=== PATIENT | male | born 1985 | race Caucasian/White ===

== ENCOUNTER 2019-11-15 22:53 | Observation (INO) | payer SELFPAY ==
--- NOTE | 2019-11-15 23:36 | ER Document Report ---
Entered by QUIANA RICHARDSON SCRIBE 11/15/19 [id number] Acting as scribe for:DESTINY PENDLETON IV, MD ED Syncope and Near Syncope - General Chief Complaint: Syncope Stated Complaint: SYNCOPAL EPISODE WITH HYPOTENSION Time Seen by Provider: 11/15/19 23:04 Mode of Arrival: Medic Information source: Patient Notes: This 34 year old male patient brought in by EMS from sister's house presents to the ED today with complaints of a syncopal episode that occurred just prior to arrival. Patient states that he was at the beach all day and drank x3 beers. When he got home, he had x2 mixed drinks and then ate some pizza. He states that he went outside to smoke a cigarette, but does not remember what happened after he went outside. Nursing reports positive witnessed LOC from a standing position onto his left side. Upon EMS arrival, patient was awake, but disoriented and had an initial BP in the 60s systolic and BGL of 155. They administered 1 L fluid which brought the patient's BP up. Patient reports left shoulder pain, but denies head or neck pain. Denies any prior cardiac history. - Related Data Allergies/Adverse Reactions: No Known Allergies Allergy (Unverified 11/15/19 23:04) Past Medical History - General Information source: Patient - Social History Smoking Status: Current Every Day Smoker Smoking Education Provided: No Frequency of alcohol use: Social Family History: Reviewed & Not Pertinent Patient has suicidal ideation: No Patient has homicidal ideation: No Review of Systems - Review of Systems Constitutional: No symptoms reported EENT: No symptoms reported Cardiovascular: See HPI, Syncope Respiratory: No symptoms reported Gastrointestinal: See HPI, Poor fluid intake Genitourinary: No symptoms reported Male Genitourinary: No symptoms reported Musculoskeletal: See HPI, Joint pain. denies: Neck pain Skin: No symptoms reported Hematologic/Lymphatic: No symptoms reported Neurological/Psychological: See HPI, Lost consciousness. denies: Headaches -: Yes All other systems reviewed and negative Physical Exam - Vital signs Vitals: Resp Pulse Ox 16 87 L 11/15/19 22:59 11/15/19 22:59 - General General appearance: Alert In distress: None - HEENT Head: Normocephalic, Atraumatic Eyes: Normal Conjunctiva: Injected Extraocular movements intact: Yes Pupils: PERRL - Respiratory Respiratory status: No respiratory distress Chest status: Nontender Breath sounds: Normal Chest palpation: Normal - Cardiovascular Rhythm: Regular Heart sounds: Normal auscultation Murmur: No Friction rub: No Gallop: None auscultated - Abdominal Inspection: Normal Distension: No distension Bowel sounds: Normal Tenderness: Nontender - Abdomen soft Organomegaly: No organomegaly - Back Back: Normal, Nontender - Extremities General upper extremity: Normal inspection General lower extremity: Normal inspection - Neurological Neuro grossly intact: Yes - No focal neurological deficits Orientation: AAOx4 [place] Coma Scale Eye Opening: Spontaneous [place] Coma Scale Verbal: Oriented [place] Coma Scale Motor: Obeys Commands [place] Coma Scale Total: 15 - Psychological Associated symptoms: Normal affect, Normal mood - Skin Skin Temperature: Warm Skin Moisture: Dry Skin Color: Normal Course - Re-evaluation Re-evalutation: 11/16/19 04:05 Results of ED MSE discussed with patient and patient's . All questions were answered. Recommendation of admission discussed with patient; he agreed to be admitted. - Vital Signs Vital signs: Temp Pulse Resp BP Pulse Ox 97.6 F 70 15 109/50 L 93 11/15/19 23:06 11/15/19 23:06 11/16/19 02:01 11/16/19 02:01 11/16/19 02:01 - Laboratory Result Diagrams: 11/16/19 00:00 11/16/19 00:00 Laboratory results interpreted by me: 11/16/19 11/16/19 11/16/19 00:00 00:00 00:00 WBC 10.9 H PT 15.5 H Potassium 3.5 L Magnesium 2.4 H Total Protein 6.2 L - EKG Interpretation by Me Additional EKG results interpreted by me: 11/16/19 04:06 EKG obtained on 11/15/2019 at 2305 hrs. was interpreted by this MD. Findings: A. fib with a rate of 69. There are no obvious patterns of ST segment elevation or depression present to suggest acute myocardial ischemia or infarction. Impressi on: Rate controlled A. fib EKG obtained on 11/16/2019 at 00 21 hours was interpreted by this MD. Findings: Atrial fibrillation with a rate of 88. There are no obvious patterns of ST segment elevation or depression present to suggest acute myocardial ischemia or infarction. Impression rate controlled A. fib. - Consults Dr. Catherine Time consulted: 04:05 Reason for consultation: 11/16/19 04:09 new onset a fib Consulted provider: will see as inpatient Discharge - Discharge Clinical Impression: New onset atrial fibrillation, Cocaine abuse, Marijuana abuse Elevated blood alcohol level Qualifiers: Blood alcohol level: 40-59 mg/100 ml Qualified Code(s): Y90.2 - Blood alcohol level of 40-59 mg/100 ml Condition: Stable Disposition: ADMITTED OBSERVATION Admitting Provider: Catherine (Hospitalist) Unit Admitted: Telemetry I personally performed the services described in the documentation, reviewed and edited the documentation which was dictated to the scribe in my presence, and it accurately records my words and actions.
[2019-11-15] MEDS ORDERED: ONDANSETRON HCL INJ/PF 4 MG/2 ML SDV IV ONE (23:41)
--- NOTE | 2019-11-15 23:49 | RADIOLOGY REPORT (SQ) ---
CLINICAL HISTORY: ams, fall COMPARISON: None. TECHNIQUE: CT HEAD WITHOUT IV CONTRAST on 11/15/2019 11:18 PM CDT This exam was performed according to our departmental dose-optimization program, which includes automated exposure control, adjustment of the mA and/or kV according to patient size and/or use of iterative reconstruction technique. FINDINGS: There is no acute hemorrhage, mass effect or midline shift. Preston-white differentiation is preserved. There is no hydrocephalus. There is no significant volume loss for age. The calvarium is intact. Orbits and globes are unremarkable. The paranasal sinuses are clear. Mastoid air cells are clear. IMPRESSION: No acute intracranial findings.
[2019-11-15] MEDS: NORMAL SALINE 1000 ML 1,000 ML IV PRN (23:55)
[2019-11-16 00:18] LABS: ABSOLUTE EOSINOPHILS # (AUTO) 0.1 10^3/uL (0.0-0.6); ABSOLUTE LYMPHOCYTES (AUTO) 3.5 10^3/uL (0.5-4.7); ABSOLUTE NEUT (AUTO) 6.3 10^3/uL (1.7-8.2); BASOPHILS % (AUTO) 0.2 % (0-2); EOSINOPHILS % (AUTO) 1.2 % (0-6); HEMATOCRIT 42.9 % (37.9-51.0); LYMPHOCYTES % (AUTO) 31.9 % (13-45); MEAN CORPUSCULAR HEMOGLOBIN 31.9 pg (27.0-33.4); MEAN CORPUSCULAR VOLUME 91 fl (80-97); MONOCYTES % (AUTO) 8.9 % (3-13); PLATELET COUNT 289 10^3/uL (150-450); RED BLOOD COUNT 4.71 10^6/uL (4.35-5.55); RED CELL DISTRIBUTION WIDTH 13.4 % (11.5-14.0); SEGMENTED NEUTROPHILS % (AUTO) 57.8 % (42-78); TOTAL CELLS COUNTED % (AUTO) 100 %; WHITE BLOOD COUNT 10.9 10^3/uL (4.0-10.5)
[2019-11-16] MEDS: NORMAL SALINE 1000 ML 1,000 ML IV PRN (00:22)
[2019-11-16 00:28] LABS: INTERNATIONAL RATION (INR) 1.21; PROTHROMBIN TIME 15.5 SEC (11.4-15.4)
[2019-11-16 00:43] LABS: ALBUMIN 3.8 g/dL (3.5-5.0); ALKALINE PHOSPHATASE 53 U/L (38-126); ANION GAP 11 (5-19); ASPARTATE AMINO TRANSFERASE 20 U/L (17-59); BILIRUBIN,DIRECT 0.3 mg/dL (0.0-0.4); BILIRUBIN,TOTAL 0.4 mg/dL (0.2-1.3); BLOOD UREA NITROGEN 15 mg/dL (7-20); CALCIUM 8.8 mg/dL (8.4-10.2); CARBON DIOXIDE 24 mmol/L (22-30); CHLORIDE 103 mmol/L (98-107); GLUCOSE 104 mg/dL (75-110); POTASSIUM 3.5 mmol/L (3.6-5.0); TOTAL PROTEIN 6.2 g/dL (6.3-8.2)
[2019-11-16 00:45] LABS: APPEARANCE,URINE CLEAR; BILIRUBIN,URINE NEGATIVE (NEGATIVE); COLOR,URINE YELLOW; GLUCOSE, URINE NEGATIVE (NEGATIVE); KETONES,URINE NEGATIVE (NEGATIVE); LEUKOCYTE ESTERASE,URINE NEGATIVE (NEGATIVE); NITRITE,URINE NEGATIVE (NEGATIVE); PROTEIN,URINE NEGATIVE (NEGATIVE); UROBILINOGEN,URINE NEGATIVE mg/dL (<2.0)
[2019-11-16 01:01] LABS: URINE AMPHETAMINES SCREEN NEGATIVE; URINE BARBITURATES SCREEN NEGATIVE; URINE BENZODIAZEPINES SCREEN NEGATIVE; URINE METHADONE SCREEN NEGATIVE; URINE PHENCYCLIDINE SCREEN NEGATIVE
[2019-11-16 01:04] LABS: URINE COCAINE SCREEN UNCONFIRMED POSITIVE; URINE MARIJUANA (THC) SCREEN UNCONFIRMED POSITIVE
[2019-11-16 01:53] LABS: FREE T3 4.52 pg/mL (2.77-5.27); FREE T4 (FREE THYROXINE) 1.4 ng/dL (0.78-2.19)
[2019-11-16] MEDS ORDERED: POTASSIUM CHLORIDE 10 MEQ TABLET.ER PO ONE (03:21)
[2019-11-16] MEDS ORDERED: POTASSI CL 20 MEQ/50 ML RIDER 20 MEQ/50 ML RTUPB IV ONE (03:21)
[2019-11-16] MEDS ORDERED: PROMETHAZINE HCL INJ 25 MG/1 ML VIAL IV PRN (04:48)
[2019-11-16] MEDS ORDERED: MELATONIN 5 MG TABLET PO PRN (04:48)
[2019-11-16] MEDS ORDERED: GUAIFENESIN SYRP 200 MG/10 ML UDC PO PRN (04:48)
[2019-11-16] MEDS ORDERED: NICOTINE 21 MG/24 HR PATCH.TD24 TD PRN (04:48)
[2019-11-16] MEDS ORDERED: LORAZEPAM INJ 2 MG/1 ML VIAL IV PRN (04:48)
[2019-11-16] MEDS ORDERED: MAG HYDROX/AL HYDROX/SIMETH SUSP 30 ML UDCUP PO PRN (04:49)
[2019-11-16] MEDS ORDERED: MAGNESIUM HYDROXIDE SUSP 30 ML UDCUP PO PRN (04:49)
--- NOTE | 2019-11-16 06:30 | PDOC H&P ---
History of Present Illness Admission Date/PCP: 11/16/19 04:18 Patient complains of: Syncopal episode History of Present Illness: CHEMA SIMON is a 34 year old male who presented via EMS to the emergency room with an acute syncopal episode. He admits having been out in the sun at the beach all day and consuming 3 beers prior to returning home for supper. At suppertime he had 2 mixed drinks and ate pizza. After eating he went outside to smoke a cigarette and lost consciousness falling from a standing position witnessed by several observers, his unconsciousness persisted for more than 20 minutes. He denies any prodrome symptoms prior to his collapse. He denies other associated or accompanying signs and symptoms. He denies prior similar episodes. Upon EMS arrival he was found to be awake but mildly disoriented and was noted to be hypotensive. His blood pressure recovered well with administration of 1 L of IV fluid. In the emergency room he was found to have a left shoulder contusion, atrial fibrillation on his EKG, hypokalemia, a minimal leukocytosis, a drug screen positive for cocaine and marijuana, a blood alcohol level of 49 and an otherwise unremarkable evaluation. Because of his newly diagnosed atrial fibrillation he was admitted observation status for initial anticoagulation and cardiology consultation. Past Medical History Cardiac Medical History: Denies: Atrial Fibrillation, Coronary Artery Disease, DVT, Myocardial Infarction, Hyperlipidema, Hypertension, Pulmonary Embolism Pulmonary Medical History: Denies: Asthma, Chronic Obstructive Pulmonary Disease (COPD) EENT Medical History: Denies: Cataracts, Ears - Hearing aids Neurological Medical History: Denies: Migraine, Multiple Sclerosis, Seizures Endocrine Medical History: Denies: Diabetes Mellitus Type 1, Diabetes Mellitus Type 2, Hyperthyroidism, Hypothyroidism, Obesity Renal/ Medical History: Denies: Chronic Kidney Disease, Nephrolithiasis Malignancy Medical History: Reports: None GI Medical History: Denies: Cirrhosis, Crohn's Disease, Gastroesophageal Reflux Disease, Hepatitis, Peptic Ulcer Disease, Ulcerative Colitis Musculoskeltal Medical History: Denies: Arthritis, Gout Skin Medical History: Denies: Eczema, Psoriasis Psychiatric Medical History: Reports: Tobacco Dependency Denies: Alcohol Dependency, Substance Abuse Traumatic Medical History: Reports: None Hematology: Denies: Anemia, Bleeding Tendencies Infectious Medical History: Reports: None Past Surgical History Past Surgical History: Reports: Appendectomy Social History Information Source: Patient Lives with: Spouse/Significant other Smoking Status: Current Every Day Smoker Electronic Cigarette use?: No Frequency of Alcohol Use: Social Hx Recreational Drug Use: Yes Drugs: Cocaine, Marijuana Hx Prescription Drug Abuse: No - Advance Directive Resuscitation Status: Full Code Surrogate healthcare decision maker:: Samantha Simon Family History Family History: denies: CAD, DM, Hypertension, Malignancy Parental Family History Reviewed: Yes Children Family History Reviewed: No Sibling(s) Family History Reviewed.: Yes Medication/Allergy Allergies/Adverse Reactions: No Known Allergies Allergy (Unverified 11/15/19 23:04) Review of Systems Constitutional: ABSENT: anorexia, fever(s) Eyes: ABSENT: visual disturbances, other - Eye pain Ears: ABSENT: hearing changes, other - Ear pain Nose, Mouth, and Throat: ABSENT: headache(s), sore throat Cardiovascular: ABSENT: chest pain, palpitations Respiratory: ABSENT: cough, dyspnea Gastrointestinal: ABSENT: abdominal pain, constipation, diarrhea, nausea, vomiting Genitourinary: ABSENT: dysuria, hematuria Musculoskeletal: PRESENT: as per HPI, back pain - Mid thoracic region centrally, other - Left shoulder pain. ABSENT: joint swelling Integumentary: ABSENT: pruritus, rash Neurological: PRESENT: as per HPI, confusion, syncope. ABSENT: convulsions, focal weakness, memory loss Psychiatric: ABSENT: anxiety, depression Endocrine: ABSENT: cold intolerance, heat intolerance Hematologic/Lymphatic: ABSENT: easy bleeding, easy bruising Allergic/Immunologic: ABSENT: seasonal rhinorrhea Physical Exam Vital Signs: Temp Pulse Resp BP Pulse Ox 97.6 F 70 15 109/50 L 93 11/15/19 23:06 11/15/19 23:06 11/16/19 02:01 11/16/19 02:01 11/16/19 02:01 Intake & Output 11/14/19 11/15/19 11/16/19 23:59 23:59 23:59 Intake Total 1450 Balance 1450 Weight 68.6 kg General appearance: PRESENT: no acute distress, cooperative, well-developed Head exam: PRESENT: atraumatic, normocephalic Eye exam: PRESENT: conjunctiva pink. ABSENT: conjunctival injection, scleral icterus Ear exam: PRESENT: normal external ear exam. ABSENT: bleeding, drainage Mouth exam: PRESENT: dry mucosa, neck supple Neck exam: ABSENT: thyromegaly, tracheal deviation Respiratory exam: PRESENT: clear to auscultation elvis, symmetrical, unlabored Cardiovascular exam: PRESENT: RRR. ABSENT: clicks, gallop, rubs Pulses: PRESENT: normal radial pulses, normal dorsalis pedis pul Vascular exam: PRESENT: normal capillary refill. ABSENT: pallor GI/Abdominal exam: PRESENT: normal bowel sounds, soft. ABSENT: tenderness Rectal exam: PRESENT: deferred Extremities exam: ABSENT: joint swelling, pedal edema Musculoskeletal exam: ABSENT: deformity, dislocation Neurological exam: PRESENT: alert, oriented to person, oriented to place, oriented to time, oriented to situation, CN II-XII grossly intact. ABSENT: motor sensory deficit Psychiatric exam: PRESENT: appropriate affect, normal mood Skin exam: PRESENT: dry, intact, warm. ABSENT: jaundice, rash, urticaria Results Laboratory Results: 11/16/19 00:00 11/16/19 00:00 11/16/19 11/16/19 11/16/19 00:00 00:00 00:00 WBC 10.9 H RBC 4.71 Hgb 15.0 Hct 42.9 MCV 91 MCH 31.9 MCHC 35.0 RDW 13.4 Plt Count 289 Seg Neutrophils % 57.8 Sodium 137.5 Potassium 3.5 L Chloride 103 Carbon Dioxide 24 Anion Gap 11 BUN 15 Creatinine 0.88 Est GFR ( Amer) > 60 Glucose 104 Calcium 8.8 Magnesium 2.4 H Total Bilirubin 0.4 AST 20 Alkaline Phosphatase 53 Total Protein 6.2 L Albumin 3.8 TSH 1.83 Free T4 Free T3 pg/mL Urine Color Urine Appearance Urine pH Ur Specific [place] Urine Protein Urine Glucose (UA) Urine Ketones Urine Blood Urine Nitrite Ur Leukocyte Esterase Urine WBC (Auto) Urine RBC (Auto) 11/16/19 11/16/19 00:00 00:18 WBC RBC Hgb Hct MCV MCH MCHC RDW Plt Count Seg Neutrophils % Sodium Potassium Chloride Carbon Dioxide Anion Gap BUN Creatinine Est GFR ( Amer) Glucose Calcium Magnesium Total Bilirubin AST Alkaline Phosphatase Total Protein Albumin TSH Free T4 1.40 Free T3 pg/mL 4.52 Urine Color YELLOW Urine Appearance CLEAR Urine pH 5.0 Ur Specific [place] 1.010 Urine Protein NEGATIVE Urine Glucose (UA) NEGATIVE Urine Ketones NEGATIVE Urine Blood NEGATIVE Urine Nitrite NEGATIVE Ur Leukocyte Esterase NEGATIVE Urine WBC (Auto) 1 Urine RBC (Auto) 1 11/16/19 00:00 Troponin I < 0.012 Impressions: Head CT 11/15/19 23:18 IMPRESSION: No acute intracranial findings. Assessment and Plan - Diagnosis (1) Episode of syncope Qualifiers: Encounter type: initial encounter Is this a current diagnosis for this admission?: Yes (2) New onset atrial fibrillation Is this a current diagnosis for this admission?: Yes (3) Hypokalemia Is this a current diagnosis for this admission?: Yes (4) Contusion of left shoulder Qualifiers: Encounter type: initial encounter Qualified Code(s): S40.012A - Contusion of left shoulder, initial encounter Is this a current diagnosis for this admission?: Yes (5) Acute thoracic back pain Qualifiers: Back pain laterality: midline Qualified Code(s): M54.6 - Pain in thoracic spine Is this a current diagnosis for this admission?: Yes (6) Alcohol abuse Is this a current diagnosis for this admission?: Yes (7) Tobacco use disorder, continuous Is this a current diagnosis for this admission?: Yes - Plan Summary Summary: Patient will be admitted to the telemetry unit on the medical floor where he w ill receive routine supportive and symptomatic cares. A cardiology consultation with Dr. Srivastava will be obtained. Serial cardiac enzymes will be obtained. Lovenox 1 mg/kg subcu every 12 hours initially. Potassium repletion was undertaken in the ER. Patient will use Ativan 1 mg IV every 4 hours as needed for anxiety or restlessness. He will use morphine sulfate 2 to 4 mg IV every 2 hours as needed for pain control. He will be started on a cardiac diet. Smoking cessation is advised and counseled briefly at the bedside. A nicotine replacement patch be available for the patient's use, if desired. CT scan of the neck and chest will be obtained. Left shoulder x-ray will also be obtained. A repeat EKG will be obtained as the patient's atrial fibrillation was resolved at the time of my evaluation. - Time Time Spent with patient: 15-24 minutes Smoking Cessation Education: 3 to 10 minutes Medications reviewed and adjusted accordingly: No - No home meds Anticipated Discharge Disposition: Home, Self Care Anticipated Discharge Timeframe: within 36 hours - Inpatient Certification Based on my medical assessment, after consideration of the patient's comorbidities, presenting symptoms, or acuity I expect that the services needed warrant INPATIENT care.: No I certify that my determination is in accordance with my understanding of Medicare's requirements for reasonable and necessary INPATIENT services [42 CFR 412.3e].: No
[2019-11-16] MEDS: ENOXAPARIN SODIUM INJ 80 MG/0.8 ML DISP.SYRIN SUBCUT SCH ×2 (06:47→17:51)
[2019-11-16 07:20] LABS: CREATINE KINASE MB 0.39 ng/mL (<4.55)
[2019-11-16 07:23] LABS: TROPONIN I < 0.012 ng/mL
--- NOTE | 2019-11-16 07:38 | RADIOLOGY REPORT (SQ) ---
EXAM DESCRIPTION: XR SHOULDER 2 OR MORE VIEWS COMPLETED DATE/TME: 11/16/2019 06:42 CLINICAL HISTORY: 34 years, Male, Syncope with fall and LOC, painful right shoulder COMPARISON: None. NUMBER OF VIEWS: 3 TECHNIQUE: 3 views of the left shoulder were obtained LIMITATIONS: None. FINDINGS: No bone or joint abnormality is seen. Visualized portion of left hemithorax is clear. IMPRESSION: No acute abnormality as above. copyright 2010 [employer]- All Rights Reserved
--- NOTE | 2019-11-16 08:18 | RADIOLOGY REPORT (SQ) ---
EXAM DESCRIPTION: CT CHEST WITHOUT IMAGES COMPLETED DATE/TIME: 11/16/2019 8:03 am REASON FOR STUDY: Neck/upper back pain s/p syncopal episode w LOC COMPARISON: None. TECHNIQUE: CT scan performed of the chest without intravenous contrast. Images reviewed with lung, soft tissue and bone windows. Reconstructed coronal and sagittal MPR images reviewed. All images st ored on PACS. All CT scanners at this facility use dose modulation, iterative reconstruction, and/or weight based d osing when appropriate to reduce radiation dose to as low as reasonably achievable (ALARA). [facility]: Dose Right [facility]: CareDose [facility]: Dose Right [facility]: Teradose 4D [facility]: Smart [employer] RADIATION DOSE: CT Rad equipment meets quality standard of care and radiation dose reduction techniq ues were employed. CTDIvol: 14.4 mGy. DLP: 610 mGy-cm. mGy. LIMITATIONS: No technical limitations. FINDINGS: LUNGS AND PLEURA: No masses, infiltrates, or pneumothorax. No pleural effusions or pleura l calcifications. HILAR AND MEDIASTINAL STRUCTURES: No identified masses or abnormal nodes. No obvious aneurysm. HEART AND VASCULAR STRUCTURES: No aneurysm. No pericardial effusion. UPPER ABDOMEN: No significant findings. Limited exam. THYROID AND OTHER SOFT TISSUES: No masses. No adenopathy. BONES: No rib or spine fracture identified. HARDWARE: None in the chest. OTHER: No other significant findings. IMPRESSION: No acute thoracic abnormality. No evidence of pneumothorax or fracture. TECHNICAL DOCUMENTATION: JOB ID: [id number] Quality ID # [id number]: Final reports with documentation of one or more dose reduction techniques (e.g., Au tomated exposure control, adjustment of the mA and/or kV according to patient size, use of iterative reconstruction technique) 2010 [employer]- All Rights Reserved Reading location - IP/workstation name: [email or web address] MANAGEMENT [email or web address]
--- NOTE | 2019-11-16 08:19 | RADIOLOGY REPORT (SQ) ---
EXAM DESCRIPTION: CT CERVICAL SPINE WITHOUT IMAGES COMPLETED DATE/TIME: 11/16/2019 8:03 am REASON FOR STUDY: Neck/upper back pain s/p syncopal episode w LOC COMPARISON: None. TECHNIQUE: Axial images acquired through the cervical spine without intravenous contrast. Images re viewed with lung, soft tissue and bone windows. Reconstructed coronal and sagittal MPR images review ed. Images stored on PACS. All CT scanners at this facility use dose modulation, iterative reconstruction, and/or weight based d osing when appropriate to reduce radiation dose to as low as reasonably achievable (ALARA). [facility]: Dose Right [facility]: CareDose [facility]: Dose Right [facility]: Teradose 4D [facility]: [facility] RADIATION DOSE: CT Rad equipment meets quality standard of care and radiation dose reduction techniq ues were employed. CTDIvol: 14.6 mGy. DLP: 366 mGy-cm. mGy. LIMITATIONS: None. FINDINGS: ALIGNMENT: Anatomic. MINERALIZATION: Normal. VERTEBRAL BODIES: No fractures or dislocation. DISCS: No significant disc disease. FACETS, LATERAL MASSES, POSTERIOR ELEMENTS: No fractures. No dislocation. No acute findings. HARDWARE: None in the spine. VISUALIZED RIBS: No fractures. LUNG APICES AND SOFT TISSUES: No significant or acute findings. OTHER: No other significant finding. IMPRESSION: NO ACUTE OR SIGNIFICANT FINDINGS IN THE CERVICAL SPINE. TECHNICAL DOCUMENTATION: JOB ID: [id number] Quality ID # [id number]: Final reports with documentation of one or more dose reduction techniques (e.g., Au tomated exposure control, adjustment of the mA and/or kV according to patient size, use of iterative reconstruction technique) 2010 [employer]- All Rights Reserved Reading location - IP/workstation name: [email or web address]
[2019-11-16] MEDS: ACETAMINOPHEN 325 MG TABLET PO PRN (08:35)
[2019-11-16] MEDS: FAMOTIDINE 20 MG TABLET PO SCH ×2 (10:00→22:09)
[2019-11-16] MEDS: DOCUSATE SODIUM 100 MG CAPSULE PO SCH ×2 (10:00→17:49)
[2019-11-16] MEDS: RINGERS SOLUTION,LACTATED 1,000 ML IV PRN ×2 (12:25→21:54)
[2019-11-16 12:42] LABS: CREATINE KINASE MB 0.26 ng/mL (<4.55)
[2019-11-16 12:46] LABS: TROPONIN I < 0.012 ng/mL
--- NOTE | 2019-11-16 14:21 | Progress Note ---
Provider Note Provider Note: Patient admitted late this morning by Dr. Alexander, see H&P for full evaluation and plan. Patient admitted for syncope after engaging in polysubstance abuse including cocaine marijuana and alcohol all while patient was lying out on the beach all day long not drinking any nonalcoholic fluids. Echocardiogram, carotid PVL, EEG, bilateral lower extremity PVL to rule out DVT. ESR to rule out pericarditis as he continues to have some left-sided chest pain. I started the patient on IV fluids as he was not given any on admission. Patient was seen and examined by me. We will follow-up with patient tomorrow and await current test results.
[2019-11-16] MEDS: MORPHINE SULFATE 10 MG/ML INJ IV PRN ×2 (15:38→22:09)
[2019-11-16 17:17] LABS: CREATINE KINASE MB 0.27 ng/mL (<4.55)
[2019-11-16 17:20] LABS: TROPONIN I < 0.012 ng/mL
--- NOTE | 2019-11-16 20:24 | EKG REPORT ---
SEVERITY:- ABNORMAL ECG - ATRIAL FIBRILLATION, V-RATE 61-115 BORDERLINE RIGHT AXIS DEVIATION : Confirmed by: Geronimo Turner 16-Nov-2019 20:24:26
--- NOTE | 2019-11-16 20:24 | EKG REPORT ---
SEVERITY:- NORMAL ECG - SINUS RHYTHM : Confirmed by: Geronimo Turner 16-Nov-2019 20:24:14
--- NOTE | 2019-11-16 20:25 | EKG REPORT ---
SEVERITY:- ABNORMAL ECG - ATRIAL FIBRILLATION, V-RATE 54-90 : Confirmed by: Geronimo Turner 16-Nov-2019 20:24:33
[2019-11-17] MEDS: ENOXAPARIN SODIUM INJ 80 MG/0.8 ML DISP.SYRIN SUBCUT SCH ×2 (05:24→16:49)
[2019-11-17 06:18] LABS: ABSOLUTE EOSINOPHILS # (AUTO) 0.1 10^3/uL (0.0-0.6); ABSOLUTE LYMPHOCYTES (AUTO) 3.2 10^3/uL (0.5-4.7); ABSOLUTE MONOCYTES (AUTO) 0.6 10^3/uL (0.1-1.4); ABSOLUTE NEUT (AUTO) 2.8 10^3/uL (1.7-8.2); BASOPHILS % (AUTO) 0.4 % (0-2); EOSINOPHILS % (AUTO) 1.5 % (0-6); HEMATOCRIT 41.6 % (37.9-51.0); HEMOGLOBIN 14.3 g/dL (13.5-17.0); LYMPHOCYTES % (AUTO) 47.5 % (13-45); MEAN CORPUSCULAR HEMOGLOBIN 31.8 pg (27.0-33.4); MEAN CORPUSCULAR HGB CONC 34.4 g/dL (32.0-36.0); MEAN CORPUSCULAR VOLUME 93 fl (80-97); MONOCYTES % (AUTO) 9.3 % (3-13); PLATELET COUNT 241 10^3/uL (150-450); RED BLOOD COUNT 4.49 10^6/uL (4.35-5.55); RED CELL DISTRIBUTION WIDTH 14.1 % (11.5-14.0); SEGMENTED NEUTROPHILS % (AUTO) 41.3 % (42-78); TOTAL CELLS COUNTED % (AUTO) 100 %; WHITE BLOOD COUNT 6.7 10^3/uL (4.0-10.5)
[2019-11-17 06:46] LABS: BLOOD UREA NITROGEN 9 mg/dL (7-20); CALCIUM 8.5 mg/dL (8.4-10.2); CARBON DIOXIDE 25 mmol/L (22-30); CHLORIDE 108 mmol/L (98-107); GLUCOSE 98 mg/dL (75-110); POTASSIUM 4.2 mmol/L (3.6-5.0)
[2019-11-17 07:10] LABS: ANION GAP 4 (5-19)
[2019-11-17] MEDS: RINGERS SOLUTION,LACTATED 1,000 ML IV PRN (07:15)
[2019-11-17 08:56] LABS: APPEARANCE,URINE CLEAR; BILIRUBIN,URINE NEGATIVE (NEGATIVE); COLOR,URINE YELLOW; GLUCOSE, URINE NEGATIVE (NEGATIVE); KETONES,URINE NEGATIVE (NEGATIVE); LEUKOCYTE ESTERASE,URINE NEGATIVE (NEGATIVE); NITRITE,URINE NEGATIVE (NEGATIVE); PROTEIN,URINE NEGATIVE (NEGATIVE); UROBILINOGEN,URINE NEGATIVE mg/dL (<2.0)
[2019-11-17] MEDS: DOCUSATE SODIUM 100 MG CAPSULE PO SCH ×2 (09:05→18:04)
[2019-11-17] MEDS: FAMOTIDINE 20 MG TABLET PO SCH (09:18)
--- NOTE | 2019-11-17 09:24 | PDOC CONSULTATION ---
Consultation Consult Date: 11/17/19 Attending physician:: LEONELA BELL Provider Consulted: MARITA DAVILA Consult reason:: Syncope History of Present Illness Admission Date/PCP: 11/16/19 04:18 Patient complains of: Syncope History of Present Illness: CHEMA SIMON is a 34 year old male With the following active problems 1. Nicotine dependence-cigarettes 2. Marijuana use 3. Cocaine use Patient was admitted secondary to an episode of syncope and collapse. He was at his sister's porch and had been consuming alcohol and also used cocaine. No [facility] accounts of family members available for me to discuss. Since admission to the hospital he was noted to be in atrial fibrillation with controlled ventricular response. He converted to sinus rhythm without any intervention. No prior history of cardiac illnesses specifically no prior history of arrhythmias. Patient smokes cigarettes daily, uses marijuana frequently and used cocaine on t his episode. No familial illnesses reported to me Past surgeries include appendectomy. Past Medical History Cardiac Medical History: Denies: Atrial Fibrillation, Coronary Artery Disease, DVT, Myocardial Infarction, Hyperlipidema, Hypertension, Pulmonary Embolism Pulmonary Medical History: Denies: Asthma, Chronic Obstructive Pulmonary Disease (COPD) EENT Medical History: Denies: Cataracts, Ears - Hearing aids Neurological Medical History: Denies: Migraine, Multiple Sclerosis, Seizures Endocrine Medical History: Denies: Diabetes Mellitus Type 1, Diabetes Mellitus Type 2, Hyperthyroidism, Hypothyroidism, Obesity Renal/ Medical History: Denies: Chronic Kidney Disease, Nephrolithiasis Malignancy Medical History: Reports: None GI Medical History: Denies: Cirrhosis, Crohn's Disease, Gastroesophageal Reflux Disease, Hepatitis, Peptic Ulcer Disease, Ulcerative Colitis Musculoskeltal Medical History: Denies: Arthritis, Gout Skin Medical History: Denies: Eczema, Psoriasis Psychiatric Medical History: Reports: Tobacco Dependency Denies: Alcohol Dependency, Depression, Substance Abuse Traumatic Medical History: Reports: None Hematology: Denies: Anemia, Bleeding Tendencies Infectious Medical History: Reports: None Past Surgical History Past Surgical History: Reports: Appendectomy Social History Lives with: Spouse/Significant other Smoking Status: Current Every Day Smoker Electronic Cigarette use?: No Frequency of Alcohol Use: Social Hx Recreational Drug Use: Yes Drugs: Cocaine, Marijuana Hx Prescription Drug Abuse: No - Advance Directive Resuscitation Status: Full Code Family History Family History: denies: CAD, DM, Hypertension, Malignancy Parental Family History Reviewed: Yes - No familial illnesses Children Family History Reviewed: NA Sibling(s) Family History Reviewed.: NA Medication/Allergy Home Medications: No Home Medications 11/16/19 Allergies/Adverse Reactions: No Known Allergies Allergy (Unverified 11/15/19 23:04) Review of Systems Constitutional: PRESENT: as per HPI. ABSENT: anorexia, chills, fatigue, fever(s), headache(s), night sweats, weakness, weight gain, weight loss, other Cardiovascular: PRESENT: other - Syncope Respiratory: ABSENT: as per HPI, cough, dyspnea, hemoptysis, sputum, other Musculoskeletal: ABSENT: deformity, joint swelling, muscle weakness, other Neurological: PRESENT: syncope Physical Exam Vital Signs: Temp Pulse Resp BP Pulse Ox 98.0 F 60 17 113/66 100 11/17/19 07:51 11/17/19 07:51 11/17/19 07:51 11/17/19 07:51 11/17/19 07:51 Intake & Output 11/16/19 11/17/19 11/18/19 06:59 06:59 06:59 Intake Total 1450 1967 935 Balance 1450 1967 935 Weight 68.6 kg 70.9 kg General appearance: PRESENT: no acute distress, cooperative, well-developed, well-nourished Head exam: PRESENT: atraumatic, normocephalic Eye exam: PRESENT: conjunctiva pink, EOMI Mouth exam: PRESENT: moist Respiratory exam: PRESENT: decreased breath sounds, symmetrical, unlabored Cardiovascular exam: PRESENT: RRR, +S1, +S2 Pulses: PRESENT: normal radial pulses GI/Abdominal exam: PRESENT: soft Rectal exam: PRESENT: deferred Neurological exam: PRESENT: alert, awake, oriented to person, oriented to place, oriented to time, oriented to situation Psychiatric exam: PRESENT: appropriate affect Skin exam: PRESENT: dry, intact, normal color Results Laboratory Results: 11/17/19 05:25 11/17/19 05:25 11/17/19 11/17/19 11/17/19 05:25 05:25 05:25 WBC 6.7 RBC 4.49 Hgb 14.3 Hct 41.6 MCV 93 MCH 31.8 MCHC 34.4 RDW 14.1 H Plt Count 241 Seg Neutrophils % 41.3 L Sodium 137.0 Potassium 4.2 Chloride 108 H Carbon Dioxide 25 Anion Gap 4 L BUN 9 Creatinine 0.80 Est GFR ( Amer) > 60 Glucose 98 Calcium 8.5 Magnesium 2.0 TSH 1.01 11/16/19 11/16/19 11/16/19 00:00 06:46 06:46 Creatine Kinase 92 CK-MB (CK-2) 0.39 Troponin I < 0.012 < 0.012 11/16/19 11/16/19 11/16/19 11:30 11:30 16:35 Creatine Kinase 87 82 CK-MB (CK-2) 0.26 Troponin I < 0.012 11/16/19 16:35 Creatine Kinase CK-MB (CK-2) 0.27 Troponin I < 0.012 EKG Comments: CT scan of the head 11/15/2019 No acute intracranial finding Chest CT 11/16/2019 No acute thoracic abnormality. Cervical spine CT 11/16/2019 No acute or significant findings in the cervical spine Shoulder x-ray 11/16/2019 No acute abnormality Twelve-lead EKG 11/15/2019 Independently reviewed by me. Atrial fibrillation ventricular rate of 69 bpm, QTC 407 ms Twelve-lead EKG 11/16/2019 Sinus rhythm, 66 bpm, early repolarization pattern, normal AV conduction, QTC 390 ms. Laboratory Cocaine positive, THC screen positive Troponin negative x2 Impressions: Head CT 11/15/19 23:18 IMPRESSION: No acute intracranial findings. Chest CT 11/16/19 00:00 IMPRESSION: No acute thoracic abnormality. No evidence of pneumothorax or fracture. Cervical Spine CT 11/16/19 06:31 IMPRESSION: NO ACUTE OR SIGNIFICANT FINDINGS IN THE CERVICAL SPINE. Shoulder X-Ray 11/16/19 06:42 IMPRESSION: No acute abnormality as above. copyright 2010 [employer]- All Rights Reserved Assessment & Plan - Diagnosis (1) New onset atrial fibrillation Is this a current diagnosis for this admission?: Yes Plan: Episode of atrial fibrillation that was provoked probably in a situation of catecholamine excess on account of cocaine abuse. Rhythm is converted back to sinus rhythm without intervention No further work-up is necessary at the moment Stroke risk is low And since this is an episode of provoked atrial fibrillation would not recommend systemic anticoagulation or even aspirin therapy. Cessation of cocaine use is recommended (2) Cocaine abuse Is this a current diagnosis for this admission?: Yes Plan: Counseling regarding cocaine abuse (3) Tobacco use disorder, continuous Is this a current diagnosis for this admission?: Yes Plan: Detrimental effects on cardiovascular health. Needs counseling.
--- NOTE | 2019-11-17 12:23 | RADIOLOGY REPORT (SQ) ---
EXAM DESCRIPTION: VENOUS BILATERAL LOWER IMAGES COMPLETED DATE/TIME: 11/17/2019 12:09 pm REASON FOR STUDY: DVT/PE COMPARISON: None. TECHNIQUE: Dynamic and static bowen scale and color images acquired of both lower extremity venous sy stems. Selected spectral images acquired with additional compression and augmentation maneuvers. Imag es stored on PACS. LIMITATIONS: None. FINDINGS: RIGHT LEG COMMON FEMORAL AND FEMORAL: Normal phasicity, compression and augmentation. No visualized echogenic m aterial on bowen scale. No defects on color images. POPLITEAL: Normal compression and augmentation. No visualized echogenic material on bowen scale. No de fects on color images. CALF VESSELS: Normal compression and augmentation. No visualized echogenic material on bowen scale. No defects on color image. GSV AND SSV: Normal compression. No visualized echogenic material on bowen scale. No defects on color images. ANY DEEP VENOUS INSUFFICIENCY: Not evaluated. ANY EVIDENCE OF POPLITEAL CYST: No. OTHER: No other significant finding. LEFT LEG COMMON FEMORAL AND FEMORAL: Normal phasicity, compression and augmentation. No visualized echogenic m aterial on bowen scale. No defects on color images. POPLITEAL: Normal compression and augmentation. No visualized echogenic material on bowen scale. No de fects on color images. CALF VESSELS: Normal compression and augmentation. No visualized echogenic material on bowen scale. No defects on color images. GSV AND SSV: Normal compression. No visualized echogenic material on bowen scale. No defects on color images. ANY DEEP VENOUS INSUFFICIENCY: Not evaluated. ANY EVIDENCE POPLITEAL CYST: No. OTHER: No other significant finding. IMPRESSION: 1. NO EVIDENCE DVT OR SVT IN EITHER LEG. TECHNICAL DOCUMENTATION: JOB ID: [id number] 2010 [employer]- All Rights Reserved Reading location - IP/workstation name: [email or web address]
--- NOTE | 2019-11-17 12:25 | RADIOLOGY REPORT (SQ) ---
EXAM DESCRIPTION: CAROTID DOPPLER IMAGES COMPLETED DATE/TIME: 11/17/2019 12:09 pm REASON FOR STUDY: vascular disease COMPARISON: None. TECHNIQUE: Grayscale ultrasound, Doppler velocity and spectra, and color Doppler images acquired of the extra-cranial carotid and vertebral arteries. Images stored on PACS. LIMITATIONS: None. FINDINGS: RIGHT CAROTID CCA Velocities: Within normal limits. ICA Velocities Peak systolic 101 cm/s. End diastolic 33 cm/s. Proximal ICA/CCA peak systolic ratio 1.0. Spectra normal. No significant plaque. LEFT CAROTID CCA Velocities: Within normal limits. ICA Velocities Peak systolic 90 cm/s. End diastolic 38 cm/s. Proximal ICA/CCA peak systolic ratio 0.9. Spectra normal. No significant plaque. VERTEBRAL ARTERIES: Antegrade flow. Normal waveforms. SUBCLAVIAN ARTERIES: No finding. OTHER: No other significant finding. IMPRESSION: 1. NO HEMODYNAMICALLY SIGNIFICANT STENOSIS. COMMENT: Quality ID #[id number]: Velocity criteria are extrapolated from the diameter data as defined by t he Society of Radiologists in Ultrasound Consensus Conference. Radiology 2003: 229; 340-346. TECHNICAL DOCUMENTATION: JOB ID: [id number] 2010 [employer]- All Rights Reserved Reading location - IP/workstation name: [email or web address]
[2019-11-17 12:33] VITALS: BP 119/77
[2019-11-17] MEDS: ACETAMINOPHEN 325 MG TABLET PO PRN (16:46)
--- NOTE | 2019-11-17 17:12 | XCELERA REPORT ---
[address] [address] Transthoracic Echocardiogram Report Name: CHEMA SIMON Age: 34 yrs Gender: Male : 1985 Patient Status: Inpatient Patient Location: [address] [place] [address] Study Date: 11/17/2019 09:54 AM Height: 72 in Weight: 151 lb BSA: 1.9 m2 Procedure: A two-dimensional transthoracic echocardiogram with color flow and Doppler was performed. Study Quality: Good. Reason For Study: CHF History: CHF. Ordering Physician: LEONELA BELL Performed By: Aliyah Faust Interpretation Summary The left ventricle is normal in size. There is normal left ventricular wall thickness. LV EF is 60% Left ventricular systolic function is normal. Doppler measurements suggest normal left ventricular diastolic function The left ventricular wall motion is normal. There is no thrombus. No ASD,VSD ,or PFO seen. The right ventricle is normal in size and function. The right atrium is normal. The left atrial size is normal. There is no evidence of mitral valve prolapse. There is no mitral valve stenosis. There is a trace amount of mitral regurgitation There is no aortic valvular vegetation. There is no aortic valve stenosis There is aortic sclerosis without aortic stenosis. No aortic regurgitation is present. There is no tricuspid stenosis. There is a trace amount of tricuspid regurgitation There is mild pulmonary hypertension by echo RVSP is 33 mm of Hg , with RA mean of 10. There is no pulmonic valvular stenosis. There is a trace amount of pulmonic regurgitation The aortic root is normal size. The inferior vena cava appeared normal and decreased > 50% with respiration (RAP 5-10 mmHg) There is no pericardial effusion. MMode/2D Measurements & Calculations RVDd: 2.1 cm LVIDd: 4.7 cm FS: 34.5 % Ao root diam: 3.2 cm IVSd: 0.94 cm LVIDs: 3.1 cm EDV(Teich): 100.3 ml Ao root area: 7.9 cm2 LVPWd: 0.92 cm ESV(Teich): 36.5 ml LA dimension: 3.5 cm EF(Teich): 63.6 % Doppler Measurements & Calculations MV E max filomena: MV P1/2t max filomena: Ao V2 max: LV V1 max P.4 cm/sec 87.4 cm/sec 108.6 cm/sec 2.7 mmHg MV A max filomena: MV P1/2t: 49.0 msec Ao max PG: LV V1 max: 43.9 cm/sec MVA(P1/2t): 4.5 cm2 4.7 mmHg 81.9 cm/sec MV E/A: 2.0 MV dec slope: 522.0 cm/sec2 MV dec time: 0.17 sec PA V2 max: PI end-d filomena: TR max filomena: MV P1/2t-pr_phl: 81.9 cm/sec 101.8 cm/sec 241.6 cm/sec 49.0 msec PA max PG: TR max P.7 mmHg 23.4 mmHg Left Ventricle The left ventricle is normal in size. There is normal left ventricular wall thickness. LV EF is 60%. Left ventricular systolic function is normal. Doppler measurements suggest normal left ventricular diastolic function. The left ventricular wall motion is normal. There is no thrombus. No ASD,VSD ,or PFO seen. Right Ventricle The right ventricle is normal in size and function. Atria The right atrium is normal. The left atrial size is normal. Mitral Valve There is no evidence of mitral valve prolapse. There is no vegetation seen on the mitral valve. There is no mitral valve stenosis. There is a trace amount of mitral regurgitation. Aortic Valve There is no aortic valvular vegetation. There is no aortic valve stenosis. There is aortic sclerosis without aortic stenosis. No aortic regurgitation is present. Tricuspid Valve There is no tricuspid stenosis. There is a trace amount of tricuspid regurgitation. There is mild pulmonary hypertension by echo. RVSP is 33 mm of Hg , with RA mean of 10. Pulmonic Valve There is no pulmonic valvular stenosis. There is a trace amount of pulmonic regurgitation. Great Vessels The aortic root is normal size. The inferior vena cava appeared normal and decreased > 50% with respiration (RAP 5-10 mmHg). Effusions There is no pericardial effusion. : LEONELA BELL Lakshmi
--- NOTE | 2019-11-17 18:24 | PDOC DISCHARGE SUMMARY ---
Impression - Admit/DC Date/PCP Admission Date/Primary Care Provider: 11/16/19 04:18 Discharge Date: 11/17/19 - Assessment Summary: Patient will be admitted to the telemetry unit on the medical floor where he will receive routine supportive and symptomatic cares. A cardiology consultation with Dr. Srivastava will be obtained. Serial cardiac enzymes will be obtained. Lovenox 1 mg/kg subcu every 12 hours initially. Potassium repletion was undertaken in the ER. Patient will use Ativan 1 mg IV every 4 hours as needed for anxiety or restlessness. He will use morphine sulfate 2 to 4 mg IV every 2 hours as needed for pain control. He will be started on a cardiac diet. Smoking cessation is advised and counseled briefly at the bedside. A nicotine replacement patch be available for the patient's use, if desired. CT scan of the neck and chest will be obtained. Left shoulder x-ray will also be obtained. A repeat EKG will be obtained as the patient's atrial fibrillation was resolved at the time of my evaluation. - Additional Information Resuscitation Status: Full Code Discharge Diet: As Tolerated, Regular Discharge Activity: Activity As Tolerated, Balance Activity w/Rest Home Medications: No Home Medications 11/16/19 History of Present Illiness History of Present Illness: Per Admitting Physician: "CHEMA SIMON is a 34 year old male who presented via EMS to the emergency room with an acute syncopal episode. He admits having [place] and consuming 3 beers prior to returning home for supper. At suppertime he had 2 mixed drinks and ate pizza. After eating he went outside to smoke a cigarette and lost consciousness falling from a standing position witnessed by several observers, his unconsciousness persisted for more than 20 minutes. He denies any prodrome symptoms prior to his collapse. He denies other associated or accompanying signs and symptoms. He denies prior similar episodes. Upon EMS arrival he was found to be awake but mildly disoriented and was noted to be hypotensive. His blood pressure recovered well with administration of 1 L of IV fluid. In the emergency room he was found to have a left shoulder contusion, atrial fibrillation on his EKG, hypokalemia, a minimal leukocytosis, a drug screen positive for cocaine and marijuana, a blood alcohol level of 49 and an otherwise unremarkable evaluation. Because of his newly diagnosed atrial fibrillation he was admitted observation status for initial anticoagulation and cardiology consultation." Hospital Course Hospital Course: Patient admitted for syncope after drinking alcohol and doing drugs all day in the sun on the beach and not drinking any nonalcoholic beverages for an entire day. Patient was rehydrated effectively electrolytes were corrected and work-up was done for other causes of syncope. Of note, patient had a normal result from his echocardiogram, bilateral lower extremity PVL to rule out DVT, carotid PVLs. Machining And Assembly Supervisor was consulted and visited patient, he did not wish to pursue any further work-up. Patient was instructed to stop his polysubstance abuse and to remain adequately hydrated especially when he is out in the sun/heat. Plan fully explained to patient and he is in full agreement and wishes to be discharged at this time. Physical Exam Vital Signs: Temp Pulse Resp BP Pulse Ox 98.5 F 54 L 17 119/77 100 11/17/19 11:55 11/17/19 14:00 11/17/19 11:55 11/17/19 11:55 11/17/19 11:55 Intake & Output 11/16/19 11/17/19 11/18/19 06:59 06:59 06:59 Intake Total 1450 1968 935 Balance 1450 1968 935 Weight 68.6 kg 70.9 kg General appearance: PRESENT: no acute distress, well-developed, well-nourished Head exam: PRESENT: atraumatic, normocephalic Eye exam: PRESENT: conjunctiva pink Mouth exam: PRESENT: moist Respiratory exam: PRESENT: clear to auscultation elvis. ABSENT: rales, rhonchi, wheezes Cardiovascular exam: PRESENT: RRR. ABSENT: diastolic murmur, rubs, systolic murmur GI/Abdominal exam: PRESENT: normal bowel sounds, soft. ABSENT: distended, guarding, mass, organolmegaly, rebound, tenderness Neurological exam: PRESENT: alert, awake, oriented to person, oriented to place, oriented to time, oriented to situation, CN II-XII grossly intact. ABSENT: motor sensory deficit Skin exam: PRESENT: dry, intact, warm Results Laboratory Results: WBC 6.7 10^3/uL (4.0-10.5) 11/17/19 05:25 RBC 4.49 10^6/uL (4.35-5.55) 11/17/19 05:25 Hgb 14.3 g/dL (13.5-17.0) 11/17/19 05:25 Hct 41.6 % (37.9-51.0) 11/17/19 05:25 MCV 93 fl (80-97) 11/17/19 05:25 MCH 31.8 pg (27.0-33.4) 11/17/19 05:25 MCHC 34.4 g/dL (32.0-36.0) 11/17/19 05:25 RDW 14.1 % (11.5-14.0) H 11/17/19 05:25 Plt Count 241 10^3/uL (150-450) 11/17/19 05:25 Lymph % (Auto) 47.5 % (13-45) H 11/17/19 05:25 [place] % (Auto) 9.3 % (3-13) 11/17/19 05:25 Eos % (Auto) 1.5 % (0-6) 11/17/19 05:25 Baso % (Auto) 0.4 % (0-2) 11/17/19 05:25 Absolute Neuts (auto) 2.8 10^3/uL (1.7-8.2) 11/17/19 05:25 Absolute Lymphs (auto) 3.2 10^3/uL (0.5-4.7) 11/17/19 05:25 Absolute Monos (auto) 0.6 10^3/uL (0.1-1.4) 11/17/19 05:25 Absolute Eos (auto) 0.1 10^3/uL (0.0-0.6) 11/17/19 05:25 Absolute Basos (auto) 0.0 10^3/uL (0.0-0.2) 11/17/19 05:25 Seg Neutrophils % 41.3 % (42-78) L 11/17/19 05:25 ESR 3 mm/hr (0-15) 11/16/19 19:30 PT 15.5 SEC (11.4-15.4) H 11/16/19 00:00 INR 1.21 11/16/19 00:00 APTT 30.0 SEC (23.5-35.8) 11/16/19 00:00 Sodium 137.0 mmol/L (137-145) 11/17/19 05:25 Potassium 4.2 mmol/L (3.6-5.0) 11/17/19 05:25 Chloride 108 mmol/L (98-107) H 11/17/19 05:25 Carbon Dioxide 25 mmol/L (22-30) 11/17/19 05:25 Anion Gap 4 (5-19) L 11/17/19 05:25 BUN 9 mg/dL (7-20) 11/17/19 05:25 Creatinine 0.80 mg/dL (0.52-1.25) 11/17/19 05:25 Est GFR ( Amer) > 60 (>60) 11/17/19 05:25 Est GFR (MDRD) Non-Af > 60 (>60) 11/17/19 05:25 Glucose 98 mg/dL (75-110) 11/17/19 05:25 Calcium 8.5 mg/dL (8.4-10.2) 11/17/19 05:25 Magnesium 2.0 mg/dL (1.6-2.3) 11/17/19 05:25 Total Bilirubin 0.4 mg/dL (0.2-1.3) 11/16/19 00:00 Direct Bilirubin 0.3 mg/dL (0.0-0.4) 11/16/19 00:00 Neonat Total Bilirubin Not Reportable 11/16/19 00:00 Neonat Direct Bilirubin Not Reportable 11/16/19 00:00 Neonat Indirect Bili Not Reportable 11/16/19 00:00 AST 20 U/L (17-59) 11/16/19 00:00 ALT 14 U/L (<50) 11/16/19 00:00 Alkaline Phosphatase 53 U/L (38-126) 11/16/19 00:00 Creatine Kinase 82 U/L (55-170) 11/16/19 16:35 CK-MB (CK-2) 0.27 ng/mL (<4.55) 11/16/19 16:35 Troponin I < 0.012 ng/mL 11/16/19 16:35 Total Protein 6.2 g/dL (6.3-8.2) L 11/16/19 00:00 Albumin 3.8 g/dL (3.5-5.0) 11/16/19 00:00 TSH 1.01 uIU/mL (0.47-4.68) 11/17/19 05:25 Free T4 1.40 ng/dL (0.78-2.19) 11/16/19 00:00 Free T3 pg/mL 4.52 pg/mL (2.77-5.27) 11/16/19 00:00 Urine Color YELLOW 11/17/19 07:15 Urine Appearance CLEAR 11/17/19 07:15 Urine pH 6.0 (5.0-9.0) 11/17/19 07:15 Ur Specific [place] 1.010 11/17/19 07:15 Urine Protein NEGATIVE mg/dL (NEGATIVE) 11/17/19 07:15 Urine Glucose (UA) NEGATIVE mg/dL (NEGATIVE) 11/17/19 07:15 Urine Ketones NEGATIVE mg/dL (NEGATIVE) 11/17/19 07:15 Urine Blood NEGATIVE (NEGATIVE) 11/17/19 07:15 Urine Nitrite NEGATIVE (NEGATIVE) 11/17/19 07:15 Urine Bilirubin NEGATIVE (NEGATIVE) 11/17/19 07:15 Urine Urobilinogen NEGATIVE mg/dL (<2.0) 11/17/19 07:15 Ur Leukocyte Esterase NEGATIVE (NEGATIVE) 11/17/19 07:15 Urine WBC (Auto) 0 /HPF 11/17/19 07:15 Urine RBC (Auto) 0 /HPF 11/17/19 07:15 Urine Bacteria (Auto) TRACE /HPF 11/16/19 00:18 Urine Mucus (Auto) RARE /LPF 11/17/19 07:15 Urine Ascorbic Acid NEGATIVE (NEGATIVE) 11/17/19 07:15 Urine Opiates Screen NEGATIVE 11/16/19 00:18 Urine Methadone Screen NEGATIVE 11/16/19 00:18 Ur Barbiturates Screen NEGATIVE 11/16/19 00:18 Ur Phencyclidine Scrn NEGATIVE 11/16/19 00:18 Ur Amphetamines Screen NEGATIVE 11/16/19 00:18 U Benzodiazepines Scrn NEGATIVE 11/16/19 00:18 Urine Cocaine Screen UNCONFIRMED POSITIVE 11/16/19 00:18 U Marijuana (THC) Screen UNCONFIRMED POSITIVE 11/16/19 00:18 Serum Alcohol 49 mg/dL (NONE DETECTED) 11/16/19 00:00 11/16/19 11/16/19 11/16/19 00:00 06:46 11:30 CK-MB (CK-2) 0.39 0.26 Troponin I < 0.012 < 0.012 < 0.012 11/16/19 16:35 CK-MB (CK-2) 0.27 Troponin I < 0.012 Impressions: Head CT 11/15/19 23:18 IMPRESSION: No acute intracranial findings. Chest CT 11/16/19 00:00 IMPRESSION: No acute thoracic abnormality. No evidence of pneumothorax or fracture. Cervical Spine CT 11/16/19 06:31 IMPRESSION: NO ACUTE OR SIGNIFICANT FINDINGS IN THE CERVICAL SPINE. Shoulder X-Ray 11/16/19 06:42 IMPRESSION: No acute abnormality as above. copyright 2011 [employer]- All Rights Reserved Carotid Doppler Study 11/17/19 00:00 IMPRESSION: 1. NO HEMODYNAMICALLY SIGNIFICANT STENOSIS. Venous Doppler Study 11/17/19 00:00 IMPRESSION: 1. NO EVIDENCE DVT OR SVT IN EITHER LEG. Plan Plan of Treatment: Follow-up with PCP Stop all polysubstance abuse Stay hydrated especially when in the heat/sun Time Spent: Greater than 30 Minutes Stroke Is this a Stroke Patient?: No Acute Heart Failure - Is this a Heart Failure Patient?: No
== END 2019-11-17 18:50 | disposition home or self-care (01) ==
LOC: ER 22:53 → EH 11-16 04:18 → 3S 11-16 06:10
PROVIDERS: ADMIT Emergency Medicine; ATTEND Internal Medicine
DX: R55 Syncope and collapse (principal); I48.91 Unspecified atrial fibrillation; S40.012A Contusion of left shoulder, initial encounter; E87.6 Hypokalemia; D72.829 Elevated white blood cell count, unspecified; I95.9 Hypotension, unspecified; F14.10 Cocaine abuse, uncomplicated; F12.10 Cannabis abuse, uncomplicated; F10.10 Alcohol abuse, uncomplicated; Y90.2 Blood alcohol level of 40-59 mg/100 ml; M54.6 Pain in thoracic spine; R07.9 Chest pain, unspecified; W19.XXXA Unspecified fall, initial encounter; Y92.009 Unspecified place in unspecified non-institutional (private) residence as the place of occurrence of the external cause; M25.512 Pain in left shoulder; F17.210 Nicotine dependence, cigarettes, uncomplicated; Z90.49 Acquired absence of other specified parts of digestive tract
CPT/HCPCS: 93005 ×3; 99285; 96361; 96374; 36415 ×2; 84439; 82553; 80307 ×2; 82550; 83735 ×2; 84443 ×2; 85025; 85652; 85610; 85730; 80048; 80053; 81001 ×2; 84484; 84481; 93306; 93970; 93880; 73030; 70450; 71250; 72125; 93010 ×2; 99406; G0378 ×3; J2270; J3490; J2405; J3480; J7030 ×2; J7120 ×2; J1650 ×2